=== PATIENT | male | born 1985 | race Two or more races ===

== ENCOUNTER 2017-11-23 14:34 | Emergency (ER) | payer OTHER ==
[2017-11-23] MEDS ORDERED: XYLOCAINE 2 % (PLAIN) ONE (14:40)
[2017-11-23] MEDS ORDERED: NS IRRIGATION 1000 ML 1,000 ML ONE (14:41)
[2017-11-23] MEDS ORDERED: ADACEL TDaP IM ONE ×2 (14:43→14:47)
[2017-11-23] MEDS ORDERED: ANCEF VIAL 1 GM IM ONE (14:47)
--- NOTE | 2017-11-23 14:48 | DR.LACERAT ---
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 TD NOT UTD. - Complaints Chief Complaint Doctors Comments: LACERATION BELOW RIGHT KNEE, PAIN RT KNEE.. Chief Complaint:: LACERATION TO MEDIAL SIDE OF RIGHT KNEE, APPROXIMATELY 4CM X 1.5CM. PT. 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) Tetanus Vaccination: No - Severity Pain Severity: Moderate Bleeding:: Uncontrolled - Associated Signs and Symptoms Associated Signs and Symptoms: None PMH - PMH Past Medical History: No Past Surgical History: No Surgical History: No History - Family History History of Family Medical Conditions: No - Social History Does patient currently use any type of tobacco product: Yes Have you used tobacco products in the last 12 months: Yes Type of Tobacco Use: Cigarettes Does any household member use tobacco: No Alcohol Use: Occasionally Do you use any recreational Drugs:: No Lives With: Family Lives Where: Home - infectious screening In the last 2 months have you had wt loss of >10#?: NO Have you had fever, night sweats or hemotysis?: No Have you traveled outside the country in the last 6 months?: No Isolation: Standard ROS - Review of Systems Constitutional: No Symptoms Reported Eyes: No Symptoms Reported ENTM: No Symptoms Reported Respiratoy: No Symptoms Reported Cardiovascular: No Symptoms Reported Gastrointestinal/Abdominal: No Symptoms Reported Genitourinary: No Symptoms Reported Neurological: No Symptoms Reported Musculoskeletal: Right, Knee Integumentary: Change in Color, Wound (4CM LAC BELOW RT KNEE.) Hematologic/Lymphatic: No Symptoms Reported Endocrine: No Symptoms Reported All Other Systems: Reviewed and Negative PE - Vital Signs Vitals: Temperature 97 F Pulse Rate 75 Respiratory Rate 18 Blood Pressure 182/98 O2 Sat by Pulse Oximetry 96 - General Limitations: No Limitations General Appearance: Alert - Head Head Exam: Normal Inspection - Eyes Eye exam: Normal Appearance - ENT ENT Exam: Normal External Ear Exam - Neck Neck Exam: Trachea Midline - Chest Chest Inspection: Symmetric Chest Wall Rise - Respiratory Respiratory Exam: Normal Lung Sounds Bilat Respiratory Exam: Bilateral Clear to Auscultation - Cardiovascular Cardiovascular Exam: Regular Rate, Normal Rhythm, Normal Heart Sounds - Abdominal Exam Abdominal Exam: Normal Inspection - Extremities Extremities Exam: Tenderness (LACERATION BELOW RIGHT KNEE.), Joint Swelling (RT KNEE SWELLING. ROM DECREASE.) - Back Back Exam: Normal Inspection - Neurologic Neurological Exam: Alert, Oriented X3 - Psychiatric Psychiatric Exam: Anxious - Skin Skin Exam: Erythema Type of Lesion: Laceration (4CM BELOW RIGHT KNEE.) MDM - Differential Diagnosis Differential Diagnosis: Contusion, Laceration, Fracture Course - Treatment Treatment: SEE ORDERS. IM TD AND ANCEF IN ED. - Education/Counseling Education/Counseling: Patient, Education Educated On: Treatment, Diagnosis, Needs for Follow Up ROR - XRAY XRAY Interpreted by: Radiologist XRAY Findings: REPORT DISCUSS WITH PATIENT. Procedures - Laceration/Wound Repair Right Knee Wound Length (cm): 4 Wound's Depth, Shape: Linear Wound Explored: contaminated Irrigated w/ Saline (ccs): 500 Betadine Prep?: Yes Anesthesia: 2% Lidocaine Volume Anesthetic (ccs): 15 Wound Debrided: minimal Wound Repaired With: sutures Suture Size/Type: 4:0 Number of Sutures: 10 Layer Closure?: Yes Deep Layer Suture Size/Type: 3:0, Vicryl Number Deep Layer Sutures: 6 Sterile Dressing Applied?: Yes Splint Applied?: No Sling Applied?: No - Diagnosis Discharge Problem: Laceration of right knee Qualifiers: Encounter type: initial encounter Qualified Code(s): S81.011A - Laceration without foreign body, right knee, initial encounter Sprain of right knee Qualifiers: Encounter type: initial encounter Involved ligament of knee: unspecified ligament Qualified Code(s): S83.91XA - Sprain of unspecified site of right knee , initial encounter Contusion of right knee Qualifiers: Encounter type: initial encounter Qualified Code(s): S80.01XA - Contusion of right knee, initial encounter - Discharge Plan Condition: Stable Prescriptions: Cephalexin [KEFLEX CAP 500 MG *] 500 mg PO TID #21 cap Ibuprofen [MOTRIN TAB 600 MG *] 600 mg PO TID PRN #20 tab PRN Reason: Pain/Inflammation Tramadol HCl 50 mg PO BID #15 tablet - Follow ups/Referrals Follow ups/Referrals: NFD,None [Primary Care Provider] - 3 days - Instructions Instructions: Laceration Care, Adult, [id number], Knee Pain, [id number] Additional Instructions: RETURN TO ED IF WORSE. SUTURE OUT IN 10 DAYS.
[2017-11-23 14:57] VITALS: BP 182/98; BMI 25.9
--- NOTE | 2017-11-23 15:14 | RAD ---
Examination: Right knee, three views History: None available Findings: No definite fracture, dislocation, patellar displacement or synovial effusion. Impression: No acute or significant knee abnormality identified. Reported By:
[2017-11-23] MEDS ORDERED: HYDROGEN PEROXIDE 3% ONE (15:58)
[2017-11-23] MEDS ORDERED: BACITRACIN ZINC ONE (16:02)
[2017-11-23] MEDS ORDERED: ANCEF VIAL 1 GM ONE (16:08)
== END 2017-11-23 16:31 | disposition home or self-care (01) ==
LOC: ER 14:52
PROC: 0YQFXZZ Repair Right Knee Region, External Approach (ICD-10-PCS; principal; 2017-11-23)
DX: S81.011A Laceration without foreign body, right knee, initial encounter (principal); S80.01XA Contusion of right knee, initial encounter; X58.XXXA Exposure to other specified factors, initial encounter; Y92.69 Other specified industrial and construction area as the place of occurrence of the external cause
CPT/HCPCS: 12002; 73564; 90471; 96372; 99000; 99282; 99283; J0690; J2001